=== PATIENT | female | born 1970 | race Caucasian/White ===

== ENCOUNTER 2017-03-02 15:24 | Emergency (ER) | payer OTHER ==
[~2017-03-02] VITALS: Ht 165.1 cm; Wt 100.0 kg
[~2017-03-02 15:24] MED LIST: CALC-10 PO; CHOL2000 PO; DULO30CA2 PO; HYDR25TA6 PO; LEVO75TA5 PO; POTA20TA14 PO
[2017-03-02 15:29] VITALS: BP 152/113
[2017-03-02] MEDS ORDERED: ALUMINUM/MAG/SIMETHICONE 30 ML UDC PO PRN (16:00)
[2017-03-02] MEDS ORDERED: LORazepam 1MG TABLET PO ONE (16:00)
[2017-03-02 16:02] LABS: HEMATOCRIT 41.3 % (34.6-47.8); HEMOGLOBIN 14.3 g/dL (11.7-16.4); WHITE BLOOD COUNT 12.4 x10^3/uL (3.4-10)
[2017-03-02] MEDS ORDERED: ALUMINUM/MAG/SIMETHICONE 30 ML UDC ONE (16:13)
[2017-03-02] MEDS ORDERED: LORazepam 1MG TABLET ONE (16:14)
[2017-03-02 16:18] LABS: BLOOD UREA NITROGEN 14 mg/dL (7-18)
[2017-03-02 16:23] LABS: IS PT STATUS REG ER OR PRE ER? YES
[2017-03-02] MEDS ORDERED: TRAM50TA2 PO (16:35)
[2017-03-02] MEDS ORDERED: SINGU (16:35)
[2017-03-02] MEDS ORDERED: LOSA1TAB19 PO (16:35)
[2017-03-02] MEDS ORDERED: CYCL-259 PO (16:35)
[2017-03-02] MEDS ORDERED: FAMOTIDINE 20 MG TABLET PO ONE (17:00)
[2017-03-02] MEDS ORDERED: DEXAMETHASONE 4 MG TABLET PO ONE (17:00)
[2017-03-02] MEDS ORDERED: DEXAMETHASONE 4 MG TABLET ONE ×2 (17:02→17:07)
[2017-03-02] MEDS ORDERED: FAMOTIDINE 20 MG TABLET ONE (17:02)
== END 2017-03-02 17:30 | disposition home or self-care (01) ==
LOC: ED 17:08
DX: R00.2 Palpitations (principal); K21.9 Gastro-esophageal reflux disease without esophagitis; I10 Essential (primary) hypertension
CPT/HCPCS: 36415; 71010; 80048; 82040; 84439; 84443; 84484; 84703; 85025; 93005; 99285